=== PATIENT | female | born 1960 | race Caucasian/White ===

== ENCOUNTER 2018-02-19 14:43 | Emergency (ER) | payer BC | END 2018-02-19 15:44 | disposition home or self-care (01) | LOC: ER 14:43 | DX: S01.511A Laceration without foreign body of lip, initial encounter (principal); M54.6 Pain in thoracic spine; M19.90 Unspecified osteoarthritis, unspecified site; E03.9 Hypothyroidism, unspecified; Z90.710 Acquired absence of both cervix and uterus; Z88.5 Allergy status to narcotic agent; Y08.89XA Assault by other specified means, initial encounter; Y93.89 Activity, other specified; Y92.89 Other specified places as the place of occurrence of the external cause; Y99.8 Other external cause status | CPT/HCPCS: 72072; 99284 ==